=== PATIENT | male | born 1990 | race Caucasian/White ===

== ENCOUNTER 2017-06-14 11:17 | Emergency (ER) | payer SELFPAY ==
[2017-06-14] MEDS ORDERED: ALBUTEROL 2.5 MG/3 ML NEB SOL ONE (12:15)
[2017-06-14] MEDS ORDERED: METHYLPREDNISOLONE 125 MG INJ ONE (12:15)
[2017-06-14] MEDS ORDERED: IPRATROPIUM BROM 0.5MG/2.5ML ONE (12:16)
--- NOTE | 2017-06-14 12:42 | RAD REPORT ---
EXAM DESCRIPTION: RAD - Chest Single View - 06/14/2017 12:38 pm CLINICAL HISTORY: Cough and congestion, dyspnea COMPARISON: None. TECHNIQUE: AP portable chest image was obtained 1231 hours . FINDINGS: Lungs are clear. Heart and vasculature are normal. No measurable pleural effusion and no p neumothorax. No gross bony abnormality seen. No acute aortic findings suspected. IMPRESSION: No acute cardiopulmonary process.
--- NOTE | 2017-06-14 12:46 | ER ---
Nurse's Notes [facility] Name: Marco Gallego Age: 27 yrs Sex: Male : 1990 Arrival Date: 06/14/2017 Time: : Bed 11 Private MD: Diagnosis: Acute bronchitis Presentation: 06/14 11:27 Presenting complaint: Patient states: I have been having coughing and congestion since tw2 , i have a headache, nothing other the counter has helped, i am having trouble breathing. Transition of care: patient was not received from another setting of care. Onset of symptoms was June 14, 2017. Care prior to arrival: None. : Method Of Arrival: Ambulatory tw2 11: Acuity: FLORESITA 4 tw Historical: - Allergies: 12: NKA; iw - Home Meds: 12: None [Active]; iw - PMHx: 12: None; iw - PSHx: 12:01 None; iw - Immunization history:: Adult Immunizations unknown. - Social history:: Smoking status: Patient uses tobacco products. Screenin:05 Abuse screen: Denies threats or abuse. Denies injuries from another. Nutritional iw screening: No deficits noted. Tuberculosis screening: No symptoms or risk factors identified. Fall Risk None identified. Assessment: 12:05 General: Appears in no apparent distress. Behavior is calm. Pain: Complains of pain in iw left mid back. Neuro: Level of Consciousness is awake, alert, obeys commands, Oriented to person, place, time, situation, Moves all extremities. Neuro: Reports headache. Cardiovascular: Patient's skin is warm and dry. Respiratory: Reports shortness of breath on exertion cough that is labored breathing pain with cough Airway is patent Respiratory effort is even, unlabored, Respiratory pattern is regular. GI: Abdomen is flat. Derm: Skin is normal. Musculoskeletal: Range of motion: intact in all extremities. Vital Signs: : BP 175 / 108; Pulse 87; Resp 18; Temp 99.0(O); Pulse Ox 99% on R/A; Weight 129.27 kg tw2 (R); Height 5 ft. 11 in. (180.34 cm) (R); Pain 8/10; 11: Body Mass Index 39.75 (129.27 kg, 180.34 cm) tw2 ED Course: 11:21 Patient arrived in ED. mr 11:27 Triage completed. tw2 11:28 Arm band placed on. tw2 11:54 Sunita Pichardo, RN is Primary Nurse. iw 11:55 Rachid Hairston PA is PHCP. jr8 11:55 Ever Reyes MD is Attending Physician. jr8 12:05 Patient has correct armband on for positive identification. iw 12:37 X-ray completed. Portable x-ray completed in exam room. Patient tolerated procedure ml well. 12:38 XRAY Chest (1 view) In Process Unspecified. EDMS 13:20 No provider procedures requiring assistance completed. Patient did not have IV access iw during this emergency room visit. Administered Medications: 12:24 Drug: Albuterol - atroVENT (3:1) (2.5 mg - 0.5 mg) 3 ml Route: Nebulizer; iw 12:24 Drug: SOLU-Medrol 125 mg Route: IM; Site: right deltoid; iw Outcome: 12:46 Discharge ordered by MD. jr8 13:20 Discharged to home ambulatory, with family. iw 13:20 Condition: good 13:20 Discharge instructions given to patient, family, Instructed on discharge instructions, follow up and referral plans. medication usage, Demonstrated understanding of instructions, follow-up care, medications, Prescriptions given X 3. 13:21 Patient left the ED. iw Signatures: Dispatcher [employer] EDNM Franny Walls mr Sunita Pichardo, RN RN iw Chata Foote Josh, PA PA jr8 Makenzie Davenport RN RN tw2
--- NOTE | 2017-06-14 12:46 | EDPHYS ---
Physician Documentation [facility] Name: Marco Gallego Age: 27 yrs Sex: Male : 1990 Arrival Date: 06/14/2017 Time: 11:21 Bed 11 Private MD: ED Physician Ever Reyes HPI: 06/14 12:20 This 27 yrs old Male presents to ER via Ambulatory with complaints of Cough, jr8 Fever, Wheezing . 12:20 The patient or guardian reports cough, that is intermittent, described as moderate, jr8 with productive sputum, that is yellow, difficulty breathing. Onset: The symptoms/episode began/occurred gradually, 2 day(s) ago. Severity of symptoms: At their worst the symptoms were moderate, in the emergency department the symptoms are unchanged. Modifying factors: The symptoms are alleviated by nothing, the symptoms are aggravated by nothing. Associated signs and symptoms: Pertinent positives: chest pain, with cough, with breathing, fever. The patient has not experienced similar symptoms in the past. The patient has not recently seen a physician. Historical: - Allergies: 12:01 NKA; iw - Home Meds: 12:01 None [Active]; iw - PMHx: 12:01 None; iw - PSHx: 12:01 None; iw - Immunization history:: Adult Immunizations unknown. - Social history:: Smoking status: Patient uses tobacco products. ROS: 12:20 Eyes: Negative for injury, pain, redness, and discharge, ENT: Negative for injury, jr8 pain, and discharge, Neck: Negative for injury, pain, and swelling, Abdomen/GI: Negative for abdominal pain, nausea, vomiting, diarrhea, and constipation, Back: Negative for injury and pain, MS/Extremity: Negative for injury and deformity, Skin: Negative for injury, rash, and discoloration, Neuro: Negative for headache, weakness, numbness, tingling, and seizure. 12:20 Constitutional: Positive for fever. 12:20 Cardiovascular: Positive for chest pain, with cough, Negative for edema, orthopnea, palpitations, paroxysmal nocturnal dyspnea. 12:20 Respiratory: Positive for cough, with yellow sputum, pleurisy, of the left lower posterior chest wall, wheezing, expiratory. Exam: 12:20 Eyes: Pupils equal round and reactive to light, extra-ocular motions intact. Lids and jr8 lashes normal. Conjunctiva and sclera are non-icteric and not injected. Cornea within normal limits. Periorbital areas with no swelling, redness, or edema. ENT: Nares patent. No nasal discharge, no septal abnormalities noted. Tympanic membranes are normal and external auditory canals are clear. Oropharynx with no redness, swelling, or masses, exudates, or evidence of obstruction, uvula midline. Mucous membranes moist. Neck: Trachea midline, no thyromegaly or masses palpated, and no cervical lymphadenopathy. Supple, full range of motion without nuchal rigidity, or vertebral point tenderness. No Meningismus. Chest/axilla: Normal chest wall appearance and motion. Nontender with no deformity. No lesions are appreciated. Cardiovascular: Regular rate and rhythm with a normal S1 and S2. No gallops, murmurs, or rubs. Normal PMI, no JVD. No pulse deficits. Abdomen/GI: Soft, non-tender, with normal bowel sounds. No distension or tympany. No guarding or rebound. No evidence of tenderness throughout. Back: No spinal tenderness. No costovertebral tenderness. Full range of motion. Skin: Warm, dry with normal turgor. Normal color with no rashes, no lesions, and no evidence of cellulitis. MS/ Extremity: Pulses equal, no cyanosis. Neurovascular intact. Full, normal range of motion. Neuro: Awake and alert, GCS 15, oriented to person, place, time, and situation. Cranial nerves II-XII grossly intact. Motor strength 5/5 in all extremities. Sensory grossly intact. Cerebellar exam normal. Normal gait. 12:20 Respiratory: the patient does not display signs of respiratory distress, Respirations: normal, symetrical, no use of accessory muscles, no grunting, no evidence of nasal flaring, no prolonged exhalations, no pursed lip breathing, no retractions, no shallow respirations, no splinting, no tachypnea, Breath sounds: rhonchi, that are moderate, are heard diffusely, wheezing: expiratory that is moderate, is heard diffusely. Vital Signs: 11:27 BP 175 / 108; Pulse 87; Resp 18; Temp 99.0(O); Pulse Ox 99% on R/A; Weight 129.27 kg tw2 (R); Height 5 ft. 11 in. (180.34 cm) (R); Pain 8/10; 11:27 Body Mass Index 39.75 (129.27 kg, 180.34 cm) tw2 MDM: 11:55 Patient medically screened. jr8 12:45 Data reviewed: vital signs, nurses notes, radiologic studies, plain films, and as a jr8 result, I will discharge patient. Data interpreted: Pulse oximetry: on room air is 99 %. Interpretation: normal. Counseling: I had a detailed discussion with the patient and/or guardian regarding: the historical points, exam findings, and any diagnostic results supporting the discharge/admit diagnosis, radiology results, the need for outpatient follow up, a family practitioner, to return to the emergency department if symptoms worsen or persist or if there are any questions or concerns that arise at home. Response to treatment: the patient's symptoms have markedly improved after treatment. 06/14 12:11 Order name: XRAY Chest (1 view); Complete Time: 12:45 jr8 Administered Medications: 12:24 Drug: Albuterol - atroVENT (3:1) (2.5 mg - 0.5 mg) 3 ml Route: Nebulizer; iw 12:24 Drug: SOLU-Medrol 125 mg Route: IM; Site: right deltoid; iw Disposition: 17:57 Co-signature as Attending Physician, Ever Reyes MD. rn Disposition: 06/14/17 12:46 Discharged to Home. Impression: Acute bronchitis. - Condition is Stable. - Discharge Instructions: Acute Bronchitis. - Prescriptions for Prednisone 20 mg Oral Tablet - take 1 tablet by ORAL route once daily for 5 days; 5 tablet. Zithromax Z- Beny 250 mg Oral Tablet - take 1 tablet by ORAL route as directed for 5 days Day 1 - take two (2) tablets one time. Day 2, 3, 4 , 5 take one (1) tablet once daily.; 6 tablet. Albuterol Sulfate 90 mcg/actuation - inhale 1-2 puff by INHALATION route every 4-6 hours; 1 Inhaler. - Work release form, Medication Reconciliation Form, Thank You Letter, Antibiotic Education, Prescription Opioid Use form. - Follow up: Private Physician; When: 2 - 3 days; Reason: Recheck today's complaints, Continuance of care, Re-evaluation by your physician. - Problem is new. - Symptoms have improved. Signatures: Dispatcher [employer] Sunita Agee, RN RN Ever Rivera MD MD rn Rachid Hairston PA PA jr8
== END 2017-06-14 13:21 | disposition home or self-care (01) ==
LOC: ER 11:17
DX: J20.9 Acute bronchitis, unspecified (principal)
CPT/HCPCS: 71045; 94640; 96372; 99284; J2930

== ENCOUNTER 2019-07-04 20:38 | Emergency (ER) | payer SELFPAY ==
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
--- NOTE | 2019-07-04 21:10 | EDPHYS ---
Physician Documentation [facility] Name: Marco Gallego Age: 29 yrs Sex: Male : 1990 Arrival Date: 07/04/2019 Time: 20:40 Bed 14 Private MD: ED Physician Jt Betancourt HPI: 07/03 20:53 This 29 yrs old Male presents to ER via Unassigned with complaints of Foot snw Injury. 20:53 The patient presents with a crush injury, kicked large pole, pain. The complaints snw affect the dorsum of right foot. Context: The problem was sustained outdoors, resulted from a direct blow, from a heavy object, the patient can partially bear weight, the patient is able to ambulate, Problem is a result from a previous injury: No. Onset: The symptoms/episode began/occurred suddenly, 3 hour(s) ago, and became persistent. Associated signs and symptoms: Pertinent positives: swelling. Treatment prior to arrival includes: ETOH. Severity of symptoms: At their worst the symptoms were moderate. It is unknown whether or not the patient has had similar symptoms in the past. The patient has not recently seen a physician. Historical: - Allergies: 20:54 NKA; ll1 - PMHx: 20:54 None; ll1 - PSHx: 20:54 None; ll1 - Immunization history:: Adult Immunizations up to date. - Social history:: Smoking status: Patient denies any tobacco usage or history of. Patient uses alcohol, on a daily basis. street drugs, marijuana. ROS: 20:52 Constitutional: Negative for fever, chills, and weight loss, Eyes: Negative for injury, snw pain, redness, and discharge, ENT: Negative for injury, pain, and discharge, Neck: Negative for injury, pain, and swelling, Cardiovascular: Negative for chest pain, palpitations, and edema, Respiratory: Negative for shortness of breath, cough, wheezing, and pleuritic chest pain, Abdomen/GI: Negative for abdominal pain, nausea, vomiting, diarrhea, and constipation, Back: Negative for injury and pain, : Negative for injury, bleeding, discharge, and swelling, MS/Extremity: feels his 3 toe was shoved up to foot/ankle and caused pain Skin: Negative for injury, rash, and discoloration, Neuro: Negative for headache, weakness, numbness, tingling, and seizure. Exam: 20:49 Constitutional: This is a well developed, well nourished patient who is awake, very snw intoxicated, and in no acute distress. Head/Face: Normocephalic, atraumatic. Eyes: Pupils equal round and reactive to light, extra-ocular motions intact. Lids and lashes normal. Conjunctiva and sclera are non-icteric and not injected. Cornea within normal limits. Periorbital areas with no swelling, redness, or edema. ENT: Nares patent. No nasal discharge, no septal abnormalities noted. Tympanic membranes are normal and external auditory canals are clear. Oropharynx with no redness, swelling, or masses, exudates, or evidence of obstruction, uvula midline. Mucous membranes moist. Neck: Trachea midline, no thyromegaly or masses palpated, and no cervical lymphadenopathy. Supple, full range of motion without nuchal rigidity, or vertebral point tenderness. No Meningismus. Chest/axilla: Normal chest wall appearance and motion. Nontender with no deformity. No lesions are appreciated. Cardiovascular: Regular rate and rhythm with a normal S1 and S2. No gallops, murmurs, or rubs. Normal PMI, no JVD. No pulse deficits. Respiratory: Lungs have equal breath sounds bilaterally, clear to auscultation and percussion. No rales, rhonchi or wheezes noted. No increased work of breathing, no retractions or nasal flaring. Abdomen/GI: Soft, non-tender, with normal bowel sounds. No distension or tympany. No guarding or rebound. No evidence of tenderness throughout. Back: No spinal tenderness. No costovertebral tenderness. Full range of motion. Skin: Warm, dry with normal turgor. Normal color with no rashes, no lesions, and no evidence of cellulitis. Neuro: Awake and alert, GCS 15, oriented to person, place, time, and situation. Cranial nerves II-XII grossly intact. Motor strength 5/5 in all extremities. Sensory grossly intact. Cerebellar exam normal. Normal gait. Psych: Awake, alert, with orientation to person, place and time. Behavior, mood, and affect are within normal limits. 20:49 Musculoskeletal/extremity: Extremities: grossly normal except: noted in the dorsum of right foot and right third toe: contusion, tenderness, ROM: intact in all extremities, Circulation is intact in all extremities. Sensation intact. Vital Signs: 20:52 BP 167 / 101; Pulse 106; Resp 18; Temp 98.0; Pulse Ox 100% ; Pain 5/10; ll1 MDM: 21:09 Patient medically screened. snw 21:14 Data reviewed: vital signs, nurses notes. Data interpreted: Pulse oximetry: on room air snw is 100 %. Interpretation: normal. Counseling: I had a detailed discussion with the patient and/or guardian regarding: the historical points, exam findings, and any diagnostic results supporting the discharge/admit diagnosis, the presence of at least one elevated blood pressure reading (>120/80) during this emergency department visit, radiology results, the need for outpatient follow up, to return to the emergency department if symptoms worsen or persist or if there are any questions or concerns that arise at home. Response to treatment: the patient's symptoms have mildly improved after treatment. Special discussion: Based on the history and exam findings, there is no indication for further emergent testing or inpatient evaluation. I discussed with the patient/guardian the need to see the orthopedic surgeon for further evaluation of the symptoms. I discussed with the patient/guardian the need to see the primary care provider for further evaluation of the symptoms. I discussed with the patient/guardian the need to see the psychiatrist for further evaluation of the symptoms. 07/03 20:49 Order name: Foot Right 3 View XRAY; Complete Time: 21:43 snw 07/03 20:49 Order name: Ankle Right 2 View XRAY; Complete Time: 21:43 snw 07/03 21:07 Order name: Posterior Orthoglass Ankle Splint; Complete Time: 22:29 snw 07/03 21:07 Order name: Crutches; Complete Time: 22:29 snw Administered Medications: No medications were administered Disposition: 07/04 06:44 Co-signature as Attending Physician, Jt Betancourt MD I agree with the assessment and tw4 plan of care. Disposition: 07/04/19 21:09 Discharged to Home. Impression: Nondisplaced fracture of third metatarsal bone, right foot, Nondisplaced fracture of fourth metatarsal bone, right foot, Alcohol abuse with intoxication. - Condition is Stable. - Discharge Instructions: Alcohol Intoxication, Cast or Splint Care, Adult, Alcohol Use Disorder, Metatarsal Fracture, RICE for Routine Care of Injuries, Crutch Use, [id number], Alcohol Abuse and Nutrition, Crush Injury of the Foot, What You Need to Know About Alcohol Abuse and Dependence, Youth. - Prescriptions for Mobic 7.5 mg Oral Tablet - take 1 tablet by ORAL route once daily take with food; 20 tablet. - Medication Reconciliation Form, Thank You Letter, Antibiotic Education, Prescription Opioid Use form. - Follow up: Emergency Department; When: As needed; Reason: Worsening of condition. Follow up: Chevy Gudino DPM; When: 2 - 3 days; Reason: Recheck today's complaints, Continuance of care. Follow up: Simon Hutchinson MD; When: 2 - 3 days; Reason: Recheck today's complaints, Continuance of care. Signatures: Dispatcher [employer] EDMS María Mejia, KINJAL-C PRESCHOOL ASSISTANT PRINCIPAL-Csnw Jt Betancourt MD MD tw4 Buffy Clark RN RN vc Lewis, Lynsay, RN RN ll1 Corrections: (The following items were deleted from the chart) 07/03 20:53 20:49 Constitutional: This is a well developed, well nourished patient who is awake, snw alert, and in no acute distress. Head/Face: Normocephalic, atraumatic. Eyes: Pupils equal round and reactive to light, extra-ocular motions intact. Lids and lashes normal. Conjunctiva and sclera are non-icteric and not injected. Cornea within normal limits. Periorbital areas with no swelling, redness, or edema. ENT: Nares patent. No nasal discharge, no septal abnormalities noted. Tympanic membranes are normal and external auditory canals are clear. Oropharynx with no redness, swelling, or masses, exudates, or evidence of obstruction, uvula midline. Mucous membranes moist. Neck: Trachea midline, no thyromegaly or masses palpated, and no cervical lymphadenopathy. Supple, full range of motion without nuchal rigidity, or vertebral point tenderness. No Meningismus. Chest/axilla: Normal chest wall appearance and motion. Nontender with no deformity. No lesions are appreciated. Cardiovascular: Regular rate and rhythm with a normal S1 and S2. No gallops, murmurs, or rubs. Normal PMI, no JVD. No pulse deficits. Respiratory: Lungs have equal breath sounds bilaterally, clear to auscultation and percussion. No rales, rhonchi or wheezes noted. No increased work of breathing, no retractions or nasal flaring. Abdomen/GI: Soft, non-tender, with normal bowel sounds. No distension or tympany. No guarding or rebound. No evidence of tenderness throughout. Back: No spinal tenderness. No costovertebral tenderness. Full range of motion. Skin: Warm, dry with normal turgor. Normal color with no rashes, no lesions, and no evidence of cellulitis. Neuro: Awake and alert, GCS 15, oriented to person, place, time, and situation. Cranial nerves II-XII grossly intact. Motor strength 5/5 in all extremities. Sensory grossly intact. Cerebellar exam normal. Normal gait. Psych: Awake, alert, with orientation to person, place and time. Behavior, mood, and affect are within normal limits. snw 21:12 21:09 07/04/2019 21:09 Discharged to Home. Impression: Nondisplaced fracture of third snw metatarsal bone, right foot; Nondisplaced fracture of fourth metatarsal bone, right foot. Condition is Stable. Forms are Medication Reconciliation Form, Thank You Letter, Antibiotic Education, Prescription Opioid Use. Follow up: Emergency Department; When: As needed; Reason: Worsening of condition. Follow up: Dr. Chevy Gudino; When: 2 - 3 days; Reason: Recheck today's complaints, Continuance of care. Follow up: Simon Hutchinson; When: 2 - 3 days; Reason: Recheck today's complaints, Continuance of care. sn 22:09 21:12 07/04/2019 21:09 Discharged to Home. Impression: Nondisplaced fracture of third vc metatarsal bone, right foot; Nondisplaced fracture of fourth metatarsal bone, right foot; Alcohol abuse with intoxication. Condition is Stable. Discharge Instructions: Alcohol Intoxication, Cast or Splint Care, Adult, Alcohol Use Disorder, Metatarsal Fracture, RICE for Routine Care of Injuries, Crutch Use, [id number], Alcohol Abuse and Nutrition, Crush Injury of the Foot, What You Need to Know About Alcohol Abuse and Dependence, Youth. Prescriptions for Mobic 7.5 mg Oral Tablet - take 1 tablet by ORAL route once daily take with food; 20 tablet. and Forms are Medication Reconciliation Form, Thank You Letter, Antibiotic Education, Prescription Opioid Use. Follow up: Emergency Department; When: As needed; Reason: Worsening of condition. Follow up: Dr. Chevy Gudino; When: 2 - 3 days; Reason: Recheck today's complaints, Continuance of care. Follow up: Simon Hutchinson; When: 2 - 3 days; Reason: Recheck today's complaints, Continuance of care. snw
--- NOTE | 2019-07-04 21:14 | RAD REPORT ---
EXAM DESCRIPTION: RAD - Ankle Right 2 View - 07/04/2019 9:07 pm CLINICAL HISTORY: Right ankle pain FINDINGS: No fracture or dislocation is seen. Limited 2 view series obtained
--- NOTE | 2019-07-04 21:16 | RAD REPORT ---
EXAM DESCRIPTION: RAD - Foot Right 3 View - 07/04/2019 9:07 pm CLINICAL HISTORY: Right foot pain status post injury FINDINGS: No fracture or dislocation is seen
[2019-07-04 22:16] VITALS: BP 167/101; TEMP 98; O2SAT 100
== END 2019-07-04 22:09 | disposition home or self-care (01) ==
LOC: ER 20:38
PROC: 2W3QX1Z Immobilization of Right Lower Leg using Splint (ICD-10-PCS; principal; 2019-07-04)
DX: S92.334A Nondisplaced fracture of third metatarsal bone, right foot, initial encounter for closed fracture (principal); S92.344A Nondisplaced fracture of fourth metatarsal bone, right foot, initial encounter for closed fracture; F10.129 Alcohol abuse with intoxication, unspecified; W22.8XXA Striking against or struck by other objects, initial encounter; Y93.9 Activity, unspecified; Y92.9 Unspecified place or not applicable
CPT/HCPCS: 99284

== ENCOUNTER → 2023-05-12 | Emergency (ER) | payer SELFPAY ==
[~2023-05-12] MED LIST: POTASSIUM 25 MEQ EFFERV TAB ONE
[2023-05-12 23:38] LABS: Basophils % 0.8 % (0-1.3); Hematocrit 41.6 % (39.6-49.0); Lymphocytes % 17.4 % (15.3-44.8); MCV 118.5 fL (80-100); Platelets 133 thou/uL (152-406); RBC Red Blood Cell Count 3.51 M/uL (4.33-5.43)
[2023-05-13 00:04] LABS: Specific Gravity 1.025 (1.005-1.030); Urine Bacteria <20 /HPF (<20); Urine Bilirubin 1+ (Negative); Urine Blood Negative (Negative); Urine Clarity Turbid (Clear); Urine Color Dark-Yellow (Yellow); Urine Glucose NEGATIVE (Negative); Urine Mucus Slight /HPF (None Seen); Urine Protein 1+ (Negative); Urine RBC <5 /HPF (None Seen); Urine Urobilinogen 3+ (Normal); Urine WBC Clump Rare /HPF (None Seen); Urine Yeast (Budding) Trace /HPF (None Seen)
[2023-05-13 00:05] LABS: Albumin 3.4 g/dL (3.4-5.0); Anion Gap 9.5 mEq/L (5.0-15.0); Bilirubin Direct 0.6 mg/dL (0-0.2); Bilirubin Total 1.5 mg/dL (0.2-1.0); C-Reactive Protein 3.98 mg/L (<3.00); Protein, Total 6.8 g/dL (6.4-8.2); Thyroid Stimulating Hormone 2.63 uIU/mL (0.358-3.740)
[2023-05-13 00:09] LABS: Potassium 2.5 mEq/L (3.5-5.1)
--- NOTE | 2023-05-13 00:51 | ER ---
Nurse's Notes [facility] Name: Marco Gallego Age: 33 yrs Sex: Male : 1990 Arrival Date: 05/12/2023 Time: 22:21 Bed 20 Private MD: Diagnosis: Alcoholic hepatitis;Alcohol abuse;Hepatic steatosis Presentation: 05/11 22:34 Chief complaint: Patient states: LLQ pain that radiates to back with dark, orange km8 urine; pt also reports frequent vomiting when eating and pale stool; pt does drink about 1/2 gallon of liquor daily. Coronavirus screen: Client denies travel out of the [place] in the last 14 days. Ebola Screen: No symptoms or risks identified at this time. Initial Sepsis Screen: Does the patient meet any 2 criteria? HR > 90 bpm. No. Patient's initial sepsis screen is negative. Does the patient have a suspected source of infection? No. Patient's initial sepsis screen is negative. Risk Assessment: Do you want to hurt yourself or someone else? Patient reports no desire to harm self or others. Onset of symptoms was May 09, 2023. 22:34 Method Of Arrival: Ambulatory km8 22:34 Acuity: FLORESITA 2 km8 Triage Assessment: 22:37 General: Appears in no apparent distress. comfortable, Behavior is calm, cooperative, km8 appropriate for age. Pain: Complains of pain in left lower quadrant Pain radiates to left low back Pain currently is 3 out of 10 on a pain scale. at worst was 7 out of 10 on a pain scale. Quality of pain is described as dull, Is continuous. EENT: No signs and/or symptoms were reported regarding the EENT system. Neuro: Level of Consciousness is awake, alert, obeys commands, Oriented to person, place, time, situation. Cardiovascular: Denies chest pain, shortness of breath, Patient's skin is warm and dry. Respiratory: Airway is patent Respiratory effort is even, unlabored, Respiratory pattern is regular, symmetrical. GI: Reports lower abdominal pain, vomiting. : Parent/caregiver report the patient having dark orange urine. Derm: No signs and/or symptoms reported regarding the dermatologic system. Skin is intact, is healthy with good turgor, Skin is dry, Skin is pink, warm \T\ dry. Skin temperature is warm. Musculoskeletal: No signs and/or symptoms reported regarding the musculoskeletal system. Range of motion: intact in all extremities. Historical: - Allergies: 22:37 NKA; km8 - Home Meds: 22:37 None [Active]; km8 - PMHx: 22:37 None; km8 - PSHx: 22:37 None; km8 - Immunization history:: Client reports receiving the 2nd dose of the Covid vaccine, Flu vaccine is not up to date. - Social history:: Smoking status: Reported history of juuling and/or vaping. Patient uses alcohol, on a daily basis. street drugs, marijuana. - Family history:: not pertinent. Screenin:45 [facility] ED Fall Risk Assessment (Adult) History of falling in the last 3 months, me1 including since admission No falls in past 3 months (0 pts) Confusion or Disorientation No (0 pts) Intoxicated or Sedated No (0 pts) Impaired Gait No (0 pts) Mobility Assist Device Used No (0 pt) Altered Elimination No (0 pt) Score/Fall Risk Level 0 - 2 = Low Risk Maintained a safe environment, Provided non-skid footwear, Hourly rounding (assess needs \T\ fall precautionary measures) done. Abuse screen: Denies threats or abuse. Nutritional screening: No deficits noted. Tuberculosis screening: No symptoms or risk factors identified. Assessment: 22:45 General: Appears uncomfortable, obese, well groomed, well developed, well nourished, me1 Behavior is calm, cooperative, appropriate for age, Reports LLQ pain that radiates to back with dark, orange urine; pt also reports frequent vomiting when eating and pale stool; pt does drink about 1/2 gallon of liquor daily. Pain: Complains of pain in left lower quadrant Pain radiates to left low back Pain currently is 4 out of 10 on a pain scale. Quality of pain is described as sharp, shooting, Pain began 2-3 days ago. Is continuous. Neuro: Level of Consciousness is awake, alert, obeys commands, Oriented to person, place, time, situation, Appropriate for age. Cardiovascular: Capillary refill < 3 seconds Patient's skin is warm and dry. Respiratory: Airway is patent Trachea midline Respiratory effort is even, unlabored, Respiratory pattern is regular, symmetrical. GI: Abdomen is obese, Reports lower abdominal pain, nausea, vomiting. : Reports pain in left flank(s), lower quadrant(s) in lower back Denies burning with urination, urinary frequency. 05/12 00:17 Reassessment: Patient appears in no apparent distress at this time. No changes from [facility] previously documented assessment. Patient and/or family updated on plan of care and expected duration. Pain level reassessed. Patient is alert, oriented x 3, equal unlabored respirations, skin warm/dry/pink. General: Appears in no apparent distress. comfortable, Behavior is calm, cooperative, appropriate for age. Neuro: Level of Consciousness is awake, alert, obeys commands, Oriented to person, place, time, situation, Appropriate for age. Cardiovascular: Patient's skin is warm and dry. Respiratory: Airway is patent Respiratory effort is even, unlabored, Respiratory pattern is regular, symmetrical. Vital Signs: 05/11 22:34 BP 165 / 59; Pulse 103; Resp 16; Temp 98.5(TE); Pulse Ox 93% on R/A; Weight 113.4 kg; [facility] Height 5 ft. 11 in. ; Pain 3/10; 23:00 BP 128 / 88; Pulse 97; Resp 18; Pulse Ox 96% on R/A; [facility] 23:30 BP 158 / 89; Pulse 84; Resp 16; Pulse Ox 97% on R/A; [facility] 05/12 00:00 BP 134 / 87; Pulse 81; Resp 16; Pulse Ox 99% on R/A; [facility] 00:30 BP 137 / 87; Pulse 78; Resp 16; Pulse Ox 96% on R/A; [facility] 05/11 22:34 Body Mass Index 34.87 (113.40 kg, 180.34 cm) [facility] 05/11 22:34 Pain Scale: Adult [facility] Floridalma Coma Score: 00:46 Eye Response: spontaneous(4). Motor Response: obeys commands(6). Verbal Response: sp4 oriented(5). Total: 15. ED Course: 05/11 22:24 Patient arrived in ED. ae5 22:30 Brandon Juarez MD is Attending Physician. sp4 22:36 Triage completed. km8 22:37 Arm band placed on right wrist. 8 22:58 Zunilda Jama, LAVERN is Primary Nurse. me1 23:23 Initial lab(s) drawn, by hi, sent to lab. Urine collected: clean catch specimen, nayla hi1 colored. Inserted saline lock: 22 gauge in right antecubital area, using aseptic technique. 23:44 Patient has correct armband on for positive identification. Bed in low position. Call hi1 light in reach. Side rails up X 1. Provided Education on: POC. Verbalized understanding. . 23:44 Urinalysis w/ reflexes Sent. hi1 23:44 Lipase Sent. hi1 23:44 CMP Sent. hi1 23:44 CBC with Diff Sent. hi1 23:44 TSH Sent. me1 23:44 Bilirubin, Direct Sent. hi1 23:44 CRP Sent. hi1 23:44 No provider procedures requiring assistance completed. hi1 23:57 CT Chest, Abdomen, Pelvis - W/Contrast In Process Unspecified. [facility] 05/12 00:12 Primary Nurse role handed off by Zunilda Jama, RN [facility] 00:12 Naa Arevalo, LAVERN is Primary Nurse. [facility] 00:35 Initial lab(s) drawn, by hi, sent to lab. 8 00:49 Ariel Flores MD is Referral Physician. sp4 01:06 IV discontinued, intact, bleeding controlled, No redness/swelling at site. Pressure 8 dressing applied. Administered Medications: 00:35 Drug: Potassium Chloride PO 40 mEq PO once Route: PO; km8 00:59 Follow up: Response: No adverse reaction [facility] Medication: 05/11 22:45 VIS not applicable for this client. [facility] Outcome: 05/12 00:50 Discharge ordered by . sp4 01:06 Discharged to home ambulatory, with friend, [facility] 01:06 Condition: good 01:06 Discharge instructions given to patient, friend, Instructed on discharge instructions, follow up and referral plans. medication usage, Demonstrated understanding of instructions, follow-up care, medications, Prescriptions given X 1, 01:07 Patient left the ED. [facility] Signatures: Dispatcher [employer] Brandon Rodriguez MD MD sp4 Zunilda Jama, RN RN me1 Naa Arevalo RN RN 8 Sari Stone ae5 Corrections: (The following items were deleted from the chart) 05/11 22:37 22:37 PSHx: Unable to Obtain; [place] [id number] 23:44 22:34 Chief complaint: Patient states: LLQ pain that radiates to back with dark, orange hi1 urine; pt also reports frequent vomiting when eating and pale stool; pt does drink about 1/2 gallon of liquor daily [facility] :48 23:44 General: Appears uncomfortable, obese, well groomed, well developed, well me1 nourished, Behavior is calm, cooperative, appropriate for age, Reports LLQ pain that radiates to back with dark, orange urine; pt also reports frequent vomiting when eating and pale stool; pt does drink about 1/2 gallon of liquor daily hi1 23:48 23:44 Pain: Complains of pain in left lower quadrant Pain radiates to left low back hi1 Pain currently is 4 out of 10 on a pain scale. Quality of pain is described as sharp, shooting, Pain began 2-3 days ago. Is continuous, [facility] :48 23:44 Neuro: Level of Consciousness is awake, alert, obeys commands, Oriented to hi1 person, place, time, situation, Appropriate for age [facility] :48 23:44 Cardiovascular: Capillary refill < 3 seconds Patient's skin is warm and dry. hi1 hi1 :48 23:44 Respiratory: Airway is patent Trachea midline Respiratory effort is even, me1 unlabored, Respiratory pattern is regular, symmetrical, [facility] :48 23:44 GI: Abdomen is obese, Reports lower abdominal pain, nausea, vomiting, hi1 [facility] :48 23:44 : Reports pain in left flank(s), lower quadrant(s) in lower back Denies burning me1 with urination, urinary frequency, [facility] :48 23:44 VIS not applicable for this client. [place] [id number] 23:49 23:44 [facility] ED Fall Risk Assessment (Adult) History of falling in the last 3 months, hi1 including since admission No falls in past 3 months (0 pts) Confusion or Disorientation No (0 pts) Intoxicated or Sedated No (0 pts) Impaired Gait No (0 pts) Mobility Assist Device Used No (0 pt) Altered Elimination No (0 pt) Score/Fall Risk Level 0 - 2 = Low Risk Maintained a safe environment, Provided non-skid footwear, Hourly rounding (assess needs \T\ fall precautionary measures) done, [facility] :49 23:44 Abuse screen: Denies threats or abuse. me1 me1 :49 23:44 Nutritional screening: No deficits noted. me1 me1 :49 23:44 Tuberculosis screening: No symptoms or risk factors identified. me1 me1 05/12 01:09 01:06 Discharge instructions given to patient, Instructed on discharge instructions, km8 follow up and referral plans. medication usage, Demonstrated understanding of instructions, follow-up care, medications, Prescriptions given X 2, km8
--- NOTE | 2023-05-13 00:51 | EDPHYS ---
Physician Documentation [facility] Name: Marco Gallego Age: 33 yrs Sex: Male : 1990 Arrival Date: 05/12/2023 Time: 22:21 Bed 20 Private MD: ED Physician Brandon Juarez HPI: 05/11 22:30 This 33 yrs old Other Male presents to ER via Unassigned with complaints of Urine sp4 Problem, Nausea/Vomiting. 22:50 Very pleasant 33-year-old male known history of prior medical conditions presents with sp4 2-1/2 weeks of abdominal discomfort vomiting after meals and urine discoloration. Patient states his urine is dark orange and he has mitchell colored stools. Patient reports he has not had evaluation for the symptoms. . 05/12 00:46 Patient reports heavy alcohol abuse drinking up to a liter of Rum or other liquor daily sp4 for several years. Historical: - Allergies: 05/11 22:37 NKA; km8 - Home Meds: 22:37 None [Active]; km8 - PMHx: 22:37 None; km8 - PSHx: 22:37 None; km8 - Immunization history:: Client reports receiving the 2nd dose of the Covid vaccine, Flu vaccine is not up to date. - Social history:: Smoking status: Reported history of juuling and/or vaping. Patient uses alcohol, on a daily basis. street drugs, marijuana. - Family history:: not pertinent. ROS: 22:50 Constitutional: Negative for fever, chills, and weight loss, positive for nausea sp4 vomiting, positive left upper abdominal pain, positive for urine discoloration 22:50 All other systems are negative, Exam: 22:50 Constitutional: This is a well developed, well nourished patient who is awake, alert, sp4 and in no acute distress. Head/Face: Normocephalic, atraumatic. Eyes: Pupils equal round and reactive to light, extra-ocular motions intact. Lids and lashes normal. Conjunctiva and sclera are not injected. Cornea within normal limits. Periorbital areas with no swelling, redness, or edema. ENT: Nares patent. No nasal discharge, no septal abnormalities noted. Tympanic membranes are normal and external auditory canals are clear. Oropharynx with no redness, swelling, or masses, exudates, or evidence of obstruction, uvula midline. Mucous membranes moist. Neck: Trachea midline, no thyromegaly or masses palpated, and no cervical lymphadenopathy. Supple, full range of motion without nuchal rigidity, or vertebral point tenderness. Chest/axilla: Normal chest wall appearance and motion. Nontender with no deformity. No lesions are appreciated. Cardiovascular: Regular rate and rhythm with a normal S1 and S2. No gallops, murmurs, or rubs. Normal PMI, no JVD. No pulse deficits. Respiratory: Lungs have equal breath sounds bilaterally, clear to auscultation and percussion. No rales, rhonchi or wheezes noted. No increased work of breathing, no retractions or nasal flaring. Abdomen/GI: Soft, with normal bowel sounds. No distension or tympany. No guarding or rebound. No evidence of tenderness throughout. Back: No spinal tenderness. No costovertebral tenderness. Skin: Warm, dry with normal turgor. Normal color with no rashes, no lesions, and no evidence of cellulitis. MS/ Extremity: Pulses equal, no cyanosis. Neurovascular intact. Full, normal range of motion. Neuro: Awake and alert, GCS 15, oriented to person, place, time, and situation. Cranial nerves II-XII grossly intact. Motor strength 5/5 in all extremities. Sensory grossly intact. Psych: Awake, alert, with orientation to person, place and time. Behavior, mood, and affect are within normal limits Vital Signs: 22:34 BP 165 / 59; Pulse 103; Resp 16; Temp 98.5(TE); Pulse Ox 93% on R/A; Weight 113.4 kg; km8 Height 5 ft. 11 in. ; Pain 3/10; 23:00 BP 128 / 88; Pulse 97; Resp 18; Pulse Ox 96% on R/A; me1 23:30 BP 158 / 89; Pulse 84; Resp 16; Pulse Ox 97% on R/A; me1 08 00:00 BP 134 / 87; Pulse 81; Resp 16; Pulse Ox 99% on R/A; km8 00:30 BP 137 / 87; Pulse 78; Resp 16; Pulse Ox 96% on R/A; km8 05/11 22:34 Body Mass Index 34.87 (113.40 kg, 180.34 cm) [facility] 05/11 22:34 Pain Scale: Adult km8 [place] Coma Score: 00:46 Eye Response: spontaneous(4). Motor Response: obeys commands(6). Verbal Response: sp4 oriented(5). Total: 15. MDM: 05/11 22:31 Patient medically screened. sp4 05/12 00:37 ED course: PROCEDURE: CT Chest, Abdomen and Pelvis With Intravenous Contrast CLINICAL sp4 INDICATION: The patient is 33 years old and is Male; abdominal pain upper abdomen TECHNIQUE: Axial computed tomography images of the chest, abdomen and pelvis with intravenous contrast. Sagittal and coronal reformatted images were created and reviewed. This CT exam was performed using one or more of the following dose reduction techniques: automated exposure control, adjustment of the mA and/or kV according to patient size, and/or use of iterative reconstruction technique. DLP: 1842 mGy*cm COMPARISON: None. FINDINGS: CHEST: LUNGS: Unremarkable. No mass. No consolidation. PLEURAL SPACE: Unremarkable. No significant effusion. No pneumothorax. HEART: Unremarkable. No cardiomegaly. No significant pericardial effusion. No significant coronary artery calcifications. ABDOMEN: LIVER: Hepatic steatosis. GALLBLADDER AND BILE DUCTS: Unremarkable. No calcified stones. No ductal dilation. PANCREAS: Unremarkable. No ductal dilation. No mass. SPLEEN: Unremarkable. No splenomegaly. ADRENALS: Unremarkable. No mass. KIDNEYS AND URETERS: Unremarkable. No hydronephrosis. No solid mass. STOMACH AND BOWEL: Fatty infiltration of the large bowel wall most likely due to chronic inflammatory process. Mild colonic diverticulosis. No acute diverticulitis. PELVIS: APPENDIX: No findings to suggest acute appendicitis. BLADDER: Bladder is decompressed. REPRODUCTIVE: Unremarkable as visualized. CHEST, ABDOMEN and PELVIS: INTRAPERITONEAL SPACE: Unremarkable. No significant fluid collection. No free air. BONES/JOINTS: Bilateral L4 spondylolysis. No acute fracture. No dislocation. SOFT TISSUES: Unremarkable. VASCULATURE: Unremarkable. No aortic aneurysm. LYMPH NODES: Unremarkable. No enlarged lymph nodes. IMPRESSION: 1. No acute intrathoracic, abdominal or pelvic abnormality. 2. Fatty infiltration of the large bowel wall most likely due to chronic inflammatory process. 3. Bilateral L4 spondylolysis. 4. Hepatic steatosis. Electronically signed by: Sanjeev Trejo DO 05/13/2023 12:15 AM TELEMARKETING AGENT . 00:46 Differential diagnosis: Nonspecific abd pain, gastritis, cholecystitis, pancreatitis, sp4 appendicitis, diverticulitis, viral gastroenteritis, gastroenteritis. Data reviewed: vital signs, nurses notes. Data reviewed: lab test result(s), radiologic studies, CT scan. Consideration of Admission/Observation Escalation of care including admission/observation considered. ED course: Patient reports history of moderate to severe alcohol abuse daily. This would explain acute alcoholic hepatitis versus chronic alcoholic hepatitis. No signs of liver cirrhosis or liver mass on the CT. Signs of hepatic steatosis. Patient will be advised to discontinue alcohol abuse. 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 . 05/11 22:30 Order name: CBC with Diff; Complete Time: 00:08 sp4 05/11 22:30 Order name: CMP; Complete Time: 00:12 sp4 05/11 22:30 Order name: Lipase; Complete Time: 00:12 sp4 05/11 22:30 Order name: Urinalysis w/ reflexes; Complete Time: 00:08 sp4 05/11 22:49 Order name: TSH; Complete Time: 00:08 sp4 05/11 22:49 Order name: Bilirubin, Direct; Complete Time: 00:08 sp4 05/11 22:50 Order name: CRP; Complete Time: 00:08 sp4 05/12 00:13 Order name: Hepatitis Panel sp4 05/11 22:50 Order name: CT Chest, Abdomen, Pelvis - W/Contrast 4 05/11 22:30 Order name: IV Saline Lock; Complete Time: 23:44 sp4 05/11 22:30 Order name: Labs collected and sent; Complete Time: 23:44 sp4 Administered Medications: 00:35 Drug: Potassium Chloride PO 40 mEq PO once Route: PO; km8 00:59 Follow up: Response: No adverse reaction km8 Disposition Summary: 05/13/23 00:50 Discharge Ordered Notes: Location: Home sp4 Problem: new sp4 Symptoms: have improved sp4 Condition: Stable sp4 Diagnosis - Alcoholic hepatitis sp4 - Alcohol abuse sp4 - Hepatic steatosis sp4 Followup: sp4 - With: Ariel Flores MD - When: 7 - 10 days - Reason: Recheck today's complaints Discharge Instructions: - Discharge Summary Sheet sp4 - Alcoholic Hepatitis sp4 Forms: - Patient Portal Instructions sp4 Prescriptions: - chlordiazepoxide HCl 25 mg Oral capsule - take 1 capsule ORAL route every 8 hours for 10 days Take every 8 hours for 5 sp4 days , then Take every 12 hours for 5 days and then once daily for another 5 days; 30 capsule; Refills: 0, Product Selection Permitted Signatures: Dispatcher [employer] Brandon Rodriguez MD MD sp4 Naa Arevalo RN RN km8 Corrections: (The following items were deleted from the chart) 05/11 22:37 22:37 PSHx: Unable to Obtain; km8 km8
[2023-05-13 01:47] VITALS: BP 137/87; TEMP 98.5; O2SAT 96
--- NOTE | 2023-05-13 18:36 | RAD REPORT ---
EXAM DESCRIPTION: CT Chest, Abdomen and Pelvis With Intravenous Contrast CLINICAL HISTORY: The patient is 33 years old and is Male; abdominal pain upper abdomen TECHNIQUE: Axial computed tomography images of the chest, abdomen and pelvis with intravenous contra st. Sagittal and coronal reformatted images were created and reviewed. This CT exam was performed using one or more of the following dose reduction techniques: automated exposure control, adjustme nt of the mA and/or kV according to patient size, and/or use of iterative reconstruction technique. DLP: 1842 mGy*cm COMPARISON: None. FINDINGS: CHEST: LUNGS: Unremarkable. No mass. No consolidation. PLEURAL SPACE: Unremarkable. No significant effusion. No pneumothorax. HEART: Unremarkable. No cardiomegaly. No significant pericardial effusion. No significant cor onary artery calcifications. ABDOMEN: LIVER: Hepatic steatosis. GALLBLADDER AND BILE DUCTS: Unremarkable. No calcified stones. No ductal dilation. PANCREAS: Unremarkable. No ductal dilation. No mass. SPLEEN: Unremarkable. No splenomegaly. ADRENALS: Unremarkable. No mass. KIDNEYS AND URETERS: Unremarkable. No hydronephrosis. No solid mass. STOMACH AND BOWEL: Fatty infiltration of the large bowel wall most likely due to chronic inflammato ry process. Mild colonic diverticulosis. No acute diverticulitis. PELVIS: APPENDIX: No findings to suggest acute appendicitis. BLADDER: Bladder is decompressed. REPRODUCTIVE: Unremarkable as visualized. CHEST, ABDOMEN and PELVIS: INTRAPERITONEAL SPACE: Unremarkable. No significant fluid collection. No free air. BONES/JOINTS: Bilateral L4 spondylolysis. No acute fracture. No dislocation. SOFT TISSUES: Unremarkable. VASCULATURE: Unremarkable. No aortic aneurysm. LYMPH NODES: Unremarkable. No enlarged lymph nodes. IMPRESSION: 1. No acute intrathoracic, abdominal or pelvic abnormality. 2. Fatty infiltration of the large bowel wall most likely due to chronic inflammatory process. 3. Bilateral L4 spondylolysis. 4. Hepatic steatosis. Electronically signed by: Sanjeev Trejo DO 05/13/2023 12:15 AM SITE INSPECTOR Due to temporary technical issues with the PACS/Fluency reporting system, reports are being signed by the in house radiologists without review as a courtesy to insure prompt reporting. The interpreting radiologist is fully responsible for the content of the report.
[2023-05-13 23:33] LABS: Hepatitis B Core IgM Nonreactive (Nonreactive); Hepatitis B surface AG Interp. Nonreactive (Nonreactive); Hepatitis C Virus Ab Nonreactive (Nonreactive)
== END ==
LOC: ER 22:21
DX: K70.10 Alcoholic hepatitis without ascites (principal); F10.10 Alcohol abuse, uncomplicated; E88.89 Other specified metabolic disorders
CPT/HCPCS: 36415; 71260; 74177; 80053; 81001; 82248; 83690; 84443; 85025; 86140; 99284; Q9967

== ENCOUNTER 2023-10-17 00:23 | Emergency (ER) | payer SELFPAY ==
[2023-10-17] MEDS ORDERED: KETOROLAC 30 MG/ML INJ ONE (00:43)
[2023-10-17] MEDS ORDERED: dexAMETHasone 10 MG/ML VIAL ONE (01:17)
--- NOTE | 2023-10-17 03:06 | EDPHYS ---
Physician Documentation [facility] Name: Marco Gallego Age: 33 yrs Sex: Male : 1990 Arrival Date: 10/17/2023 Time: 00:23 Bed 7 Private MD: ED Physician Eliseo Gan HPI: 10/16 00:38 This 33 yrs old Male presents to ER via Unassigned with complaints of Back Pain. ms3 00:38 . ms3 00:39 33-year-old male with no past medical history presents to the emergency department for ms3 lower back pain that he rates a 9/10. Patient states 1 week ago he fell down 8 steps. 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 Patient denies fevers, chills, IV drug use, saddle anesthesia, bowel incontinence, bladder incontinence, urinary retention or constipation. Historical: - Allergies: 00:41 NKA; ha1 - PMHx: 00:41 None; ha1 - Immunization history:: Adult Immunizations up to date. - Infectious Disease History:: Denies. - Social history:: Smoking status: Patient denies any tobacco usage or history of. ROS: 00:39 Constitutional: Negative for fever, and chills. Neck: Negative for injury, pain, and ms3 swelling, Cardiovascular: Negative for chest pain, and palpitations. Respiratory: Negative for shortness of breath, cough, wheezing, and pleuritic chest pain, Abdomen/GI: Negative for abdominal pain, nausea, vomiting, diarrhea, and constipation, MS/Extremity: Negative for injury and deformity, Skin: Negative for injury, rash, and discoloration, 00:39 Back: Positive for Pain, Exam: 00:39 Constitutional: This is a well developed, well nourished patient who is awake, alert, ms3 and in no acute distress. Chest/axilla: Normal chest wall appearance and motion. Nontender with no deformity. Cardiovascular: Regular rate and rhythm with a normal S1 and S2. No gallops, murmurs, or rubs. Normal PMI, no JVD. No pulse deficits. Respiratory: Lungs have equal breath sounds bilaterally, clear to auscultation and percussion. No rales, rhonchi or wheezes noted. No increased work of breathing, no retractions or nasal flaring. Abdomen/GI: Soft, non-tender, with normal bowel sounds. No distension or tympany. No guarding or rebound. No evidence of tenderness throughout. 00:39 Back: pain, that is severe, of the lumbar area, ROM is painful, with all movement, normal spinal alignment noted, Vital Signs: 00:26 BP 146 / 109; Pulse 89; Resp 20 S; Temp 97.6(T); Pulse Ox 100% on R/A; Weight 117.93 ha1 kg; Height 5 ft. 11 in. ; 02:00 BP 154 / 94; Pulse 87; Resp 18; Pulse Ox 97% ; cp4 03:11 BP 148 / 89; Pulse 71; Resp 17; Temp 97.6; Pulse Ox 98% ; Pain 2/10; bm8 00:26 Body Mass Index 36.26 (117.93 kg, 180.34 cm) ha1 03:11 Pain Scale: Adult bm8 [place] Coma Score: 03:11 Eye Response: spontaneous(4). Motor Response: obeys commands(6). Verbal Response: bm8 oriented(5). Total: 15. MDM: 00:36 Patient medically screened. ms3 00:37 Differential diagnosis: Fracture spinal injury, sprain. ms3 03:05 Data reviewed: vital signs, nurses notes, radiologic studies, and as a result, I will ms3 discharge patient. I considered the following discharge prescriptions or medication management in the emergency department Medications were administered in the Emergency Department. See MAR. Independent interpretation of the following test(s) in the Emergency Department CT Scan: My interpretation is CT Lumbar spine images reviewed do not reveal fracture. Counseling: I had a detailed discussion with the patient and/or guardian regarding the historical points, exam findings, and any diagnostic results supporting the discharge/admit diagnosis, radiology results, the need for outpatient follow up, to return to the emergency department if symptoms worsen or persist or if there are any questions or concerns that arise at home. Special discussion: I discussed with the patient/guardian in detail that at this point there is no indication for admission to the hospital. It is understood, however, that if the symptoms persist or worsen the patient needs to return immediately for re-evaluation. ED course: Discussed CT results with patient. Patient to follow-up with Dr. Greenfield in 2 to 3 days. Patient understands and agrees with plan. All questions were answered. Patient given prescription for ibuprofen and Flexeril. On reevaluation patient without numbness, weakness.. 10/16 00:37 Order name: CT Lumbar Spine Wo Con ms3 Administered Medications: 00:47 Drug: Ketorolac IM 30 mg IM once Route: IM; Site: right deltoid; cp4 03:13 Follow up: Response: No adverse reaction bm8 01:14 Not Given (Physician Discretion): hydrocodone-acetaminophen5 mg-325 mg 2 tabs PO once bm8 01:14 Not Given (Physician Discretion): diazepam5 mg PO once bm8 01:20 Drug: Dexamethasone IM 10 mg IM once Route: IM; Site: left deltoid; bm8 03:12 Follow up: Response: No adverse reaction bm8 Disposition Summary: 10/17/23 03:05 Discharge Ordered Notes: Location: Home ms3 Condition: Stable ms3 Diagnosis - Low back pain ms3 Followup: ms3 - With: Michael Greenfield DO - When: 2 - 3 days - Reason: Recheck today's complaints Discharge Instructions: - Discharge Summary Sheet ms3 - Acute Back Pain, Adult ms3 - Form - Return To Work ha1 Forms: - Medication Reconciliation Form ms3 - Antibiotic Education ms3 - Prescription Opioid Use ms3 - Patient Portal Instructions ms3 - Leadership Thank You Letter ms3 - Work release form ha1 Prescriptions: - Ibuprofen 600 mg Oral Tablet - take 1 tablet ORAL route every 6 hours As needed take with food; 30 tablet; ms3 Refills: 0, Product Selection Permitted - Cyclobenzaprine 10 mg Oral Tablet - take 1 tablet ORAL route every 8 hours As needed; 30 tablet; Refills: 0, ms3 Product Selection Permitted Signatures: Dispatcher [employer] Eliseo Rankin DO DO ms3 Elizabeth Mijares RN RN ha1 Ebony Davis cp4 Ney Mehta RN RN bm8
--- NOTE | 2023-10-17 03:06 | ER ---
Nurse's Notes [facility] Name: Marco Gallego Age: 33 yrs Sex: Male : 1990 Arrival Date: 10/17/2023 Time: 00:23 Bed 7 Private MD: Diagnosis: Low back pain Presentation: 10/16 00:26 Chief complaint: Patient states: I fell a week ago and I injured my back. Also, I have ha1 been doing heavy lifting at my job and it has worsen my back pain. 00:26 Coronavirus screen: Vaccine status: Patient reports being unvaccinated. Ebola Screen: ha1 No symptoms or risks identified at this time. Initial Sepsis Screen: Does the patient meet any 2 criteria? No. Patient's initial sepsis screen is negative. Does the patient have a suspected source of infection? No. Patient's initial sepsis screen is negative. Risk Assessment: Do you want to hurt yourself or someone else? Patient reports no desire to harm self or others. Onset of symptoms was October 17, 2023. 00:26 Method Of Arrival: Wheelchair ha1 00:26 Acuity: FLORESITA 3 ha1 Triage Assessment: 00:26 General: Appears uncomfortable, Behavior is cooperative. Pain: Complains of pain in ha1 left low back and right low back Pain does not radiate. Pain currently is 9 out of 10 on a pain scale. Quality of pain is described as sharp, shooting, throbbing. Neuro: Level of Consciousness is awake, alert, obeys commands, Oriented to person, place, time, situation. Cardiovascular: Capillary refill < 3 seconds Patient's skin is warm and dry. Respiratory: Airway is patent Respiratory effort is even, unlabored, Respiratory pattern is regular, symmetrical. Musculoskeletal: Circulation, motion, and sensation intact. Reports pain in lumbar area. Historical: - Allergies: 00:41 NKA; ha1 - PMHx: 00:41 None; ha1 - Immunization history:: Adult Immunizations up to date. - Infectious Disease History:: Denies. - Social history:: Smoking status: Patient denies any tobacco usage or history of. Screenin:50 [facility] ED Fall Risk Assessment (Adult) History of falling in the last 3 months, cp4 including since admission No falls in past 3 months (0 pts) Confusion or Disorientation No (0 pts) Intoxicated or Sedated No (0 pts) Impaired Gait No (0 pts) Mobility Assist Device Used No (0 pt) Altered Elimination No (0 pt) Score/Fall Risk Level 0 - 2 = Low Risk Oriented to surroundings, Maintained a safe environment, Assessed \T\ reinforced patient's understanding of fall precautions, Hourly rounding (assess needs \T\ fall precautionary measures) done. Abuse screen: Denies threats or abuse. Nutritional screening: No deficits noted. Tuberculosis screening: No symptoms or risk factors identified. Assessment: 00:50 General: Appears uncomfortable, Behavior is cooperative, crying. Pain: Complains of cp4 pain in back and right low back and left low back and lumbar area Pain does not radiate. Pain currently is 10 out of 10 on a pain scale. Neuro: Level of Consciousness is awake, alert, obeys commands, Oriented to person, place, time, situation. Cardiovascular: No deficits noted. Respiratory: Airway is patent Respiratory effort is even, unlabored. GI: No signs and/or symptoms were reported involving the gastrointestinal system. : No signs and/or symptoms were reported regarding the genitourinary system. EENT: No signs and/or symptoms were reported regarding the EENT system. Derm: No signs and/or symptoms reported regarding the dermatologic system. Musculoskeletal: Reports pain in back and right low back and left low back and lumbar area. 03:11 Reassessment: Patient appears in no apparent distress at this time. Patient and/or bm8 family updated on plan of care and expected duration. Pain level reassessed. Patient is alert, oriented x 3, equal unlabored respirations, skin warm/dry/pink. Patient states feeling better. Patient states symptoms have improved. Pain: Pain currently is 2 out of 10 on a pain scale. Vital Signs: 00:26 BP 146 / 109; Pulse 89; Resp 20 S; Temp 97.6(T); Pulse Ox 100% on R/A; Weight 117.93 ha1 kg; Height 5 ft. 11 in. ; 02:00 BP 154 / 94; Pulse 87; Resp 18; Pulse Ox 97% ; cp4 03:11 BP 148 / 89; Pulse 71; Resp 17; Temp 97.6; Pulse Ox 98% ; Pain 2/10; bm8 00:26 Body Mass Index 36.26 (117.93 kg, 180.34 cm) ha1 03:11 Pain Scale: Adult bm8 [place] Coma Score: 03:11 Eye Response: spontaneous(4). Motor Response: obeys commands(6). Verbal Response: bm8 oriented(5). Total: 15. ED Course: 00:25 Patient arrived in ED. jj6 00:27 Eliseo Gan DO is Attending Physician. ms3 00:39 Ebony Davis is Primary Nurse. cp4 00:41 Triage completed. ha1 00:50 Bed in low position. Call light in reach. Side rails up X2. cp4 00:50 No provider procedures requiring assistance completed. cp4 01:07 CT Lumbar Spine Wo Con In Process Unspecified. EDMS 03:04 Michael Greenfield DO is Referral Physician. ms3 03:11 Provided Education on: post er care. Client placed on continuous cardiac and pulse bm8 oximetry monitoring. NIBP monitoring applied. Pulse ox on. NIBP on. Door closed. Noise minimized. Head of bed lowered. 03:11 Patient did not have IV access during this emergency room visit. bm8 03:13 Arm band placed on right wrist. bm8 Administered Medications: 00:47 Drug: Ketorolac IM 30 mg IM once Route: IM; Site: right deltoid; cp4 03:13 Follow up: Response: No adverse reaction bm8 01:14 Not Given (Physician Discretion): hydrocodone-acetaminophen5 mg-325 mg 2 tabs PO once bm8 01:14 Not Given (Physician Discretion): diazepam5 mg PO once bm8 01:20 Drug: Dexamethasone IM 10 mg IM once Route: IM; Site: left deltoid; bm8 03:12 Follow up: Response: No adverse reaction bm8 Medication: 00:50 VIS not applicable for this client. cp4 Outcome: 03:05 Discharge ordered by . ms3 03:11 Discharged to home ambulatory, bm8 03:11 Condition: stable 03:11 Discharge instructions given to patient, Instructed on discharge instructions, follow up and referral plans. no drinking with medication, no driving heavy equipment, medication usage, safety practices, Demonstrated understanding of instructions, follow-up care, medications, Prescriptions given X 2, 03:13 Patient left the ED. bm8 Signatures: Dispatcher [employer] EDMD Eliseo Gan DO DO ms3 Nehal Brown [id number] Elizabeth Mijares, RN RN ha1 Ebony Davis cp4 Ney Mehta, RN RN bm8
[2023-10-17 03:19] VITALS: TEMP 97.6
[2023-10-17 03:22] VITALS: BP 148/89; O2SAT 98
--- NOTE | 2023-10-17 10:58 | RAD REPORT ---
EXAM DESCRIPTION: CT - Spine Lumbar Wo Con - 10/17/2023 1:05 am CLINICAL HISTORY: Fall down 8 step, pain. TECHNIQUE: Axial computed tomography images of the lumbar spine without intravenous contrast. Sagi ttal and coronal reformatted images were created and reviewed. This CT exam was performed using one or more of the following dose reduction techniques: automated exposure control, adjustment of the mA and/or kV according to patient size, and/or use of iterative reconstruction technique. COMPARISON: No relevant prior studies available. FINDINGS: Vertebrae: There are 5 nonrib-bearing lumbar-type vertebral bodies. No acute fracture or subluxation. Discs/spinal canal/neural foramina: Intervertebral disc spaces are well-maintained. Minimal multile al osteophytic lipping. Small left paracentral disc bulge at L5-S1. No canal stenosis. Soft tissues: Unremarkable. IMPRESSION: No acute injury. Electronically signed by: Vanessa Sanderson MD 10/17/2023 02:00 AM CDT RP Due to temporary technical issues with the PACS/Fluency reporting system, reports are being signed by the in house radiologist without review as a courtesy to ensure prompt reporting. The interpreting r adiologist is fully responsible for the content of the report.
== END 2023-10-17 03:13 | disposition home or self-care (01) ==
LOC: ER 00:23
DX: M54.50 Low back pain, unspecified (principal)
CPT/HCPCS: 72131; 96372; 99284; J1100